=== PATIENT | male | born 1955 | race Caucasian/White ===

== ENCOUNTER 2022-02-12 19:10 | Emergency (ER) | payer OTHER, MEDICARE, SELFPAY ==
[2022-02-12 19:12] VITALS: BP 149/74; PULSE 76; RESP 19; TEMP 36.1; O2SAT 99; BMI 24.3
[2022-02-12 20:56] VITALS: BP 134/72; PULSE 60; RESP 18; TEMP 36.6; O2SAT 99
--- NOTE | 2022-02-12 22:10 | EDS_ITS ---
HPI History of Present Illness Chief Complaint: Laceration Informant: patient Onset/Context/Timing Onset: Today Context: Sudden Onset Timing: Continuous Location: Left middle fingertip. No pain. Associated Symptoms Associated Symptoms: Negative for Parasthesia, Weakness or Loss of Funtion Narrative Narrative: Patient states he was at work using a wrench and a powered impact to work on a spring on a trailer and something let go and his hand was dragged along with the wrench across a piece of metal that tore a flap laceration of his left middle finger. [id number]. Last tetanus was 5 years ago. He denies any significant pain. Tetanus Immunization: 5-10 years [facility] Medical History no medical history no medical history Home Medications cephalexin 500 mg capsule 500 mg PO TID 5 days #15 CAPSULES 02/12/22 [Rx Last Taken Unknown] Allergy/AdvReac Type Severity Reaction Status Date / Time No Known Allergies Allergy Verified 02/12/22 19:14 Social History Smoking Status: Current every day smoker tobacco type: cigarettes ROS ROS ED Constitutional Constitutional ED: Denies chills or fever(s) Musculoskeletal Musculoskeletal: Denies extremity pain or neck pain Integumentary Reports wounds; Denies Abrasions or rash Neurologic Neurologic: Denies paresthesias or weakness EXAM Physical Exam Const Vital Signs: 02/12/22 19:12 02/12/22 20:56 02/12/22 20:56 Temperature 96.9 F L 97.8 F 97.8 F Temperature Source Temporal Oral Oral Pulse Rate 76 60 60 Respiratory Rate 19 H 18 18 Blood Pressure 149/74 H 134/72 H 134/72 H Blood Pressure Mean 99 92 92 Pulse Ox 99 99 99 Oxygen Delivery Method Room Air Room Air Room Air Positive well nourished and well developed General Appearance ED: well developed and NAD Neck full ROM and supple Back/Spine normal ROM and normal to inspection Extremity full ROM Extremity Narrative: Laceration to the left middle fingertip, does not involve the nail but abuts the radial edge of it. Curved flap, 2.5 cm, surface of the skin is blackened with dirt and interior of the wound also contaminated. No active bleeding. Nontender. No subungual hematoma. Neuro oriented x3, no focal motor deficits and no sensory deficits noted Sensorium / Orientation: alert Psych mental status grossly normal and thought process normal Skin Skin Narrative: Left middle fingertip laceration see above Rashes: no rashes MDM MDM MDM Narrative Medical decision making narrative: The patient's finger on the outside and within the wound was grossly contaminated with debris. I removed as much as I could, scrubbed with chlorhexidine and pressure irrigating it after digital block and turnicot so as to control the bleeding and repair/irrigate under bloodless field. Just because of the amount of contamination even though I removed all the gross contamination I could see, I am putting him on a short prophylactic course of antibiotics. Suture removal 10-14 days he is comfortable with that plan. Procedures Lacerations L middle fingertip: Length: 2.5 cm Depth: Sub Q Shape: Flap Prep: Sterile Conditions Laceration repair: Digital block (dorsal approach, level of MC head, 6.5 cc plain 1% lidocaine after isopropanol prep), Irrigated and Skin sutures Irrigated (ml): 120 Number of Sutures/Amy: 7 (including one suture through nail & nail bed) Suture Information: Ethilon, Simple and 5-0 Comment: Contaminant present deep within the wound. Pressure irrigated under bloodless field with a turnicot that was on for approximately 15 minutes. All contaminant removed that was grossly visible. Discharge Plan Triage Chief Complaint: Laceration ED Provider: Diony Ibrahim Dx/Rx/DC Orders Clinical Impression: Laceration of left middle finger Instructions: ED Laceration, Hand: All Closures Prescriptions: New cephalexin [cephalexin] 500 mg capsule 500 mg PO TID 5 Days Qty: 15 0RF Primary Care Provider: Stone Preston Referrals: Stone Preston MD [Primary Care Provider] - 10-14 Days suture removal Disposition Disposition: Home, Self Care
[2022-02-12] MEDS: Lidocaine 1% (20 ml mdv) 20 ML Vial INFILT (22:25)
[2022-02-12] MEDS: Cephalexin 250 MG Capsule 500 MG PO (23:47)
[2022-02-12 23:48] VITALS: BP 136/72; PULSE 76; RESP 16; O2SAT 100
== END 2022-02-12 23:49 | disposition home or self-care (01) ==
PROVIDERS: Emergency Provider Emergency Medicine; PCP Family Medicine; Visit Provider Emergency Medicine
DX: S61.213A Laceration without foreign body of left middle finger without damage to nail, initial encounter (principal); F17.210 Nicotine dependence, cigarettes, uncomplicated; W26.8XXA Contact with other sharp object(s), not elsewhere classified, initial encounter
CPT/HCPCS: 12001; 99284